=== PATIENT | male | born 1960 | race Caucasian/White ===

== ENCOUNTER 2019-08-04 07:31 | Outpatient (CLI) | payer OTHER ==
--- NOTE | 2019-08-04 08:09 | ULT ---
US Gallbladder RUQ: 08/04/2019 12:00 AM CLINICAL HISTORY: Elevated LFTs. STUDY: Limited right upper quadrant ultrasound of abdomen. COMPARISON: None. FINDINGS: Liver: Size: Normal. Echogenicity: Hyperechoic consistent with hepatic steatosis. Contour: Smooth. Mass: None. Bile ducts: No intrahepatic or extrahepatic biliary dilatation. Common bile duct measures 5 mm. Gallbladder: Normal. Pancreas: Not visualized Right kidney: No pelvicalyceal dilatation. Right kidney measuring 9.8 cm in length. IMPRESSION: Fatty liver
== END 2019-08-04 07:32 | disposition home or self-care (01) ==
LOC: ULT 07:31
PROVIDERS: ATTEND Physician Assistant
DX: R74.8 Abnormal levels of other serum enzymes (principal); K76.0 Fatty (change of) liver, not elsewhere classified
CPT/HCPCS: 76705

== ENCOUNTER 2019-08-11 12:34 | Emergency (ER) | payer OTHER ==
--- NOTE | 2019-08-11 12:54 | CT ---
EXAM: CT brain without contrast HISTORY: Left-sided numbness and blurry vision COMPARISON: None TECHNIQUE: Multiple contiguous axial images were obtained and a CT of the brain without contrast. FINDINGS: The brain is normal in morphology and attenuation without focal lesions or confluent areas of infarction. There is no evidence of hydrocephalus, intracranial hemorrhage, or extra-axial fluid collection. The calvarium and overlying soft tissues are unremarkable. The visualized paranasal sinuses and masto id air cells are well aerated. IMPRESSION: No evidence of acute intracranial abnormality
[2019-08-11 13:49] LABS: Prothrombin Time 13.3 SEC (12.0-14.7)
[2019-08-11] MEDS ORDERED: Aspirin 325 MG TAB ONE (13:52)
[2019-08-11 14:02] LABS: ALT (SGPT) 54 U/L (8-55); AST (SGOT) 33 U/L (5-34); Albumin 4.6 g/dL (3.5-5.0); Alkaline Phosphatase 75 U/L (40-110); Anion Gap 11 mmol/L (10-20); BUN (Urea Nitrogen) 14 mg/dL (8.4-25.7); Bilirubin, Total 0.7 mg/dL (0.2-1.2); Calc. Creatinine Clearance 0 mL/min (70-130); Calcium 9.5 mg/dL (7.8-10.44); Carbon Dioxide 26 mmol/L (22-29); Chloride 104 mmol/L (98-107); Estimated GFR-MDRD 79; Globulin 2.9 g/dL (2.4-3.5); Glucose 99 mg/dL (70-105); Potassium 4.1 mmol/L (3.5-5.1); Protein, Total 7.5 g/dL (6.0-8.3); Sodium 137 mmol/L (136-145)
== END 2019-08-11 16:45 | disposition home or self-care (01) ==
LOC: ERS 12:34
DX: G62.9 Polyneuropathy, unspecified (principal); E03.9 Hypothyroidism, unspecified; E78.5 Hyperlipidemia, unspecified; E78.00 Pure hypercholesterolemia, unspecified; K76.0 Fatty (change of) liver, not elsewhere classified; Z79.899 Other long term (current) drug therapy
CPT/HCPCS: 36415; 36416; 70450; 80053; 85610; 85730; 93005

== ENCOUNTER 2019-09-18 11:12 | Day surgery (SDC) | payer OTHER ==
[2019-09-17 11:29] VITALS: BMI 25.0
[~2019-09-18 11:12] MED LIST: Dexamethasone 20 MG/5 ML VIAL ONE; Magnevist 469MG/ML 20 ML VIAL ONE; Ondansetron PF 4 MG/2 ML Vial ONE; PROPOFOL 200 MG/20 ML VIAL ONE
[2019-09-18] MEDS ORDERED: Ondansetron PF 4 MG/2 ML Vial ONE (13:25)
[2019-09-18] MEDS ORDERED: Dexamethasone 4 mg/ml Vial ONE (13:25)
--- NOTE | 2019-09-18 13:26 | MRI ---
MR angiogram of the head: 09/18/2019 COMPARISON: None HISTORY: Paresthesias of skin TECHNIQUE: 3-D [id number] noncontrast enhanced MR angiography of the brain obtained. FINDINGS: Imaged distal vertebral arteries are patent with antegrade blood flow noted. The basilar ar lea and its branches are patent. No saccular aneurysm, high-grade stenosis, or vascular occlusion is seen involving the posterior circulation. The imaged cervical ICA is patent bilaterally. There is prominent tortuosity of the distal right cerv ical ICA, limiting assessment in this region. The ICA bifurcation, region of the anterior communicating artery, A1 segment, M1 segment, MCA bifurca tion, distal MCA branches, and distal FLORY branches appear grossly unremarkable bilaterally. No saccular aneurysm, high-grade stenosis, or vascular occlusion is seen involving the anterior circulat ion. IMPRESSION: Grossly unremarkable MR angiogram of the head.
--- NOTE | 2019-09-18 13:27 | MRI ---
Exam: Brain MRI with and without contrast HISTORY: Blurred vision. Left-sided numbness. Skin paresthesia. COMPARISON: None FINDINGS: Gradient echo sequence: No hemorrhage Calvarium: Appropriate T1 marrow signal intensity Midline brain parenchyma: Unremarkable Cerebrum:No parenchymal mass, mass effect or midline shift. Brain volume, age-appropriate. Cortical g ray-white matter differentiation is preserved. Minimal scattered T2 and FLAIR white matter hyperintensities, nonspecific. Ventricles: No evidence of hydrocephalus. Sinuses and mastoid air cells: Mild mucosal thickening of the visualized ethmoid air cells. Diffusion: Central arterial flow is maintained. Absent restricted diffusion. Postcontrast images: No pathologic enhancement of the brain parenchyma. IMPRESSION: Unremarkable pre and postcontrast brain MRI.
== END 2019-09-18 15:10 | disposition home or self-care (01) ==
LOC: SDC/OP 11:12
PROVIDERS: ATTEND Physician Assistant
DX: R20.2 Paresthesia of skin (principal); H53.8 Other visual disturbances; R20.0 Anesthesia of skin; G56.22 Lesion of ulnar nerve, left upper limb; M54.32 Sciatica, left side; E03.9 Hypothyroidism, unspecified; K21.9 Gastro-esophageal reflux disease without esophagitis; E78.5 Hyperlipidemia, unspecified; I10 Essential (primary) hypertension; Z79.52 Long term (current) use of systemic steroids; Z79.899 Other long term (current) drug therapy; Z88.1 Allergy status to other antibiotic agents
CPT/HCPCS: 70544; 70553; A9579; J1100; J2405; J2704

== ENCOUNTER 2020-03-31 08:41 | Outpatient (CLI) | payer OTHER ==
[2020-03-31 17:07] LABS: SARS-CoV-2 MS2 Positive; SARS-CoV-2 N Gene Negative; SARS-CoV-2 S Gene Negative; SARS-CoV-2 by NAA Not Detected (NotDetected); SARS-CoV-2 orf1ab Negative
== END 2020-03-31 08:42 | disposition home or self-care (01) ==
LOC: LABSCS 08:41
PROVIDERS: ATTEND Psychiatry & Neurology Neurology
DX: G56.22 Lesion of ulnar nerve, left upper limb (principal); M54.30 Sciatica, unspecified side; Z20.828 Contact with and (suspected) exposure to other viral communicable diseases
CPT/HCPCS: 87635; U0003

== ENCOUNTER 2020-04-04 09:58 | Day surgery (SDC) | payer OTHER ==
[2020-04-01 10:11] VITALS: BMI 23.3
[2020-04-04] MEDS ORDERED: PROPOFOL 200 MG/20 ML VIAL ONE (10:14)
[2020-04-04] MEDS ORDERED: Midazolam HCl 2 mg/2 ml Vial ONE (10:52)
--- NOTE | 2020-04-04 12:06 | MRI ---
MRI Lumbar Spine Noncontrast: HISTORY: Low back pain. COMPARISON: None FINDINGS: The visualized retroperitoneal structures demonstrate a normal appearance. Conus medullaris is normal in morphology and terminates at the L1 level. L1-2: There is no disc bulge or disc herniation. Central spinal canal and neural foramina are patent. L2-3: Mild disc osteophyte complex without significant central canal or neural foraminal narrowing. L3-4: Mild disc osteophyte complex and mild facet hypertrophic changes. Mild bilateral neural foramin al narrowing is present, and there is slight effacement of the ventral subarachnoid space. L4-5: Mild disc osteophyte complex without significant central canal narrowing. Facet hypertrophic ch anges are present. There is mild to moderate bilateral neural foraminal narrowing. L5-S1: Bilateral pars defects are present at this level with grade 1 anterolisthesis of L5 on S1 ronna uring approximately 7 mm. The central spinal canal is patent. Mild bilateral neural foraminal narrowing is present. IMPRESSION: 1. Spondylolisthesis L5-S1 level. 2. Mild degenerative changes in the lumbar spine. No high-grade central canal or neural foraminal nai rowing is present. [id number] bilateral neural foraminal narrowing is present at the L4-5 level.
--- NOTE | 2020-04-04 12:22 | MRI ---
Exam: MRI cervical spine without contrast HISTORY: Left upper limb pain. Neck pain. Evaluate for an ulnar nerve lesion. Numbness radiating down the left arm into the hand.. COMPARISON: None FINDINGS: Appropriate T1 marrow signal intensity of the cervical vertebra. Cervical spine vertebral body heigh ts are maintained. No fracture. No significant STIR hyperintensity to suggest vertebral body edema or ligamentous injury. Visualized brain parenchyma, cervicomedullary junction, cervical cord and the upper thoracic cord hav e a normal size and signal intensity Intrinsic T1 and T2 hyperintensity among the T2 and T4 vertebral bodies. Imaging evidence of osseous hemangiomas. C2-C3: Disc desiccation without significant loss of disc space height. No posterior disc abnormality. No significant central canal stenosis. Mild to moderate right and mild left neural foraminal narrowing. C3-C4: Disc desiccation without significant loss of disc space height. No posterior disc abnormality. No significant central canal stenosis. Mild bilateral neural foraminal narrowing. C4-C5: Disc desiccation without significant loss of disc space height. Broad-based disc bulge minimal ly abuts the thecal sac. No significant central canal stenosis. Patent bilateral neural foramina. C5-C6: Disc desiccation without significant loss of disc space height. Broad-based disc bulge abuts t he thecal sac. No significant central canal stenosis. Patent bilateral neural foramina. C6-C7: Disc desiccation without significant loss of disc space height. Small right paracentral disc b ulges. Minimal flattening of the cervical cord. No cord signal abnormality. Mild central canal stenosis. Mild right and moderate to severe left neural foraminal narrowing. C7-T1: No significant central canal stenosis or significant neural foraminal narrowing. IMPRESSION: Degenerative changes of the cervical spine as detailed above. Transcribed Date/Time: 04/04/2020 1:12 PM
== END 2020-04-04 13:50 | disposition home or self-care (01) ==
LOC: SDC/OP 09:58
PROVIDERS: ATTEND Psychiatry & Neurology Neurology
DX: M43.17 Spondylolisthesis, lumbosacral region (principal); M48.02 Spinal stenosis, cervical region; I10 Essential (primary) hypertension; E03.9 Hypothyroidism, unspecified; E78.5 Hyperlipidemia, unspecified; K21.9 Gastro-esophageal reflux disease without esophagitis; Z79.899 Other long term (current) drug therapy; Z88.1 Allergy status to other antibiotic agents; Z88.8 Allergy status to other drugs, medicaments and biological substances
CPT/HCPCS: 72141; 72148; J2250; J2704

== ENCOUNTER 2020-08-04 14:03 | Outpatient (CLI) | payer OTHER ==
--- NOTE | 2020-08-04 14:31 | RAD ---
PA AND LATERAL CHEST: 08/04/20 HISTORY: Chest pain and shortness of breath. Heart size and mediastinum are within normal limits. The lungs are clear of infiltrates. No significa nt bony findings. IMPRESSION: No active intrathoracic disease. POS: H
== END 2020-08-04 14:04 | disposition home or self-care (01) ==
LOC: BICRAD 14:03
PROVIDERS: ATTEND Physician Assistant
DX: R07.9 Chest pain, unspecified (principal); R06.02 Shortness of breath
CPT/HCPCS: 71046

== ENCOUNTER 2021-03-13 12:02 | Day surgery (SDC) | payer OTHER ==
[2021-03-13] MEDS ORDERED: Metoclopramide HCl 10 MG/2 ML VIAL ONE (13:30)
[2021-03-13] MEDS ORDERED: Lidocaine 1% PF 5 ML VIAL ONE (13:30)
[2021-03-13] MEDS ORDERED: Dexamethasone 20 MG/5 ML VIAL ONE (13:30)
[2021-03-13] MEDS ORDERED: Ondansetron PF 4 MG/2 ML Vial ONE (13:30)
[2021-03-13] MEDS ORDERED: PROPOFOL 200 MG/20 ML VIAL ONE (13:30)
== END 2021-03-13 15:05 | disposition home or self-care (01) ==
LOC: SDC 12:02
PROVIDERS: ATTEND Physician Assistant
DX: R20.0 Anesthesia of skin (principal); I10 Essential (primary) hypertension; R53.83 Other fatigue; E03.9 Hypothyroidism, unspecified; H91.92 Unspecified hearing loss, left ear; H93.12 Tinnitus, left ear; K21.9 Gastro-esophageal reflux disease without esophagitis; E78.5 Hyperlipidemia, unspecified; Z79.899 Other long term (current) drug therapy; Z88.1 Allergy status to other antibiotic agents; Z88.8 Allergy status to other drugs, medicaments and biological substances
CPT/HCPCS: J1100; J2405; J2704; J2765

== ENCOUNTER 2023-05-29 09:07 | Outpatient (CLI) | payer OTHER | END 2023-05-29 09:08 | disposition home or self-care (01) | LOC: ULT 09:07 | PROVIDERS: ATTEND Nurse Practitioner Family | DX: R74.8 Abnormal levels of other serum enzymes (principal) | CPT/HCPCS: 76700 ==